=== PATIENT | male | born 1990 | race African-American/Black ===

== ENCOUNTER 2016-07-18 12:46 | Emergency (ER) | payer OTHER ==
[~2016-07-18] VITALS: Ht 188 cm; Wt 72.0 kg
[2016-07-18 14:09] LABS: ADD MIUA? YES; BILIRUBIN NEGATIVE; BLOOD NEGATIVE; GLUCOSE (STRIP) NEGATIVE; KETONES NEGATIVE; LEUKOCYTES MODERATE; NITRITE NEGATIVE; PH, URINE 7.5 (5-8); PROTEIN (STRIP) NEGATIVE; SPECIFIC GRAVITY 1.016 (1.000-1.030); UROBILINOGEN 0.2 MG/DL (0.2-1.0)
[2016-07-18 14:10] LABS: COLOR LT YELLOW ((YELLOW))
[2016-07-18 14:54] LABS: BACTERIA RARE; EPITHELIAL CELLS NONE SEEN; MUCUS 1+; UCUL ADDED? NO; WHITE BLOOD CELLS 40-50 /HPF (0-5)
[2016-07-18 14:55] LABS: CASTS NONE SEEN /LPF; CRYSTALS NONE SEEN
[2016-07-18 16:36] VITALS: BP 120/80
== END 2016-07-18 16:38 | disposition home or self-care (01) ==
LOC: EME 12:46
DX: A64 Unspecified sexually transmitted disease (principal); F17.200 Nicotine dependence, unspecified, uncomplicated
CPT/HCPCS: 81003; 99281; 99284; J0696